=== PATIENT | male | born 1940 | race Caucasian/White ===

== ENCOUNTER 2024-09-08 08:43 | Outpatient (RCR) | payer MEDICARE, OTHER, SELFPAY ==
[2024-09-08 12:02] LABS: PSA Diagnostic* 0.60 ng/mL (0.10-4.00)
--- NOTE | 2024-09-17 15:25 | ONC.NURNOTE ---
Addendum entered by Alexa White RN 09/19/24 16:20: Pt called noting his pain was better yesterday with just Tylenol and 1 Tramadol, then now today it is worse, especially under arms and with walking. Today he has taken 1 Tylenol and 1 Tramadol and is having increased pain. Recommended pt take Tylenol and Tramadol together to get back on top of pain, then to stay on schedule. Reinforced option to take together every 6 hrs or to alternate Tylenol and Tramadol every 3 hrs in the day time. Pt will try taking together for this evening, then will stay on a schedule tomorrow. Original Note: Pt called with concerns the morphine is making him feel very sick, wondering if there is an alternative pain pill he can try. [employer] Worker discussed with Dr. Banegas, Dr. Banegas recommends pt take the tramadol he already has and to discuss pain management with palliative care. [employer] Worker called pt with this information and he verbalized understanding of plan of care. Pt given phone # for palliative care so he can reach them to get scheduled.
--- NOTE | 2024-10-07 12:14 | ONC.NURNOTE ---
Patient and called today about have [facility] appts the same day as his appt here on 12/24/24. states that she received paperwork from [facility] and it shows that he has an injection appt on 12/24 at 4:15 at [facility] and they would prefer to keep their appt at [facility]. Advised patient and that they would need to call [facility] to update them he is getting his injection here that day and to cancel his [facility] one. states she has called and talked to the microfilm machine operator 3 times and they said they needed to call us. RN advised that our clinic does not have the ability to make changes to [facility] appts but was happy to try and call for them. Patient stated they would call again and call back if they continued to have issues.
--- NOTE | 2024-11-11 11:41 | URNOTE ---
Request received for authorization for Lupron (Leuprolide) ([id number]). Prior authorization is not required as services are based on medical necessity and follow Medicare guidelines.
--- NOTE | 2024-12-18 11:37 | URNOTE ---
Request received for authorization for Lupron (Leuprolide) ([id number]) or Eligard ([id number]). Prior authorization is not required as services are based on medical necessity and follow Medicare guidelines.
--- NOTE | 2024-12-23 10:14 | ONC.NURNOTE ---
Patient's , Bianca called [facility] to cancel his appointments tomorrow. He is hospitalized at [facility]. He was admitted Sunday with Kamila and is now dealing with SOB and hallucinations. Per family, MRI was obtained and potential mets were seen. [facility] to obtain all records prior to seeing patient once he is discharged, family will notify our team when this occurs for follow up rescheduling. He is being followed currently by cardiology in addition to internal medicine. They will ask for oncology followup with potential call to local oncologist. Oncologist notified of above.
--- NOTE | 2025-01-21 14:13 | ONC.NURNOTE ---
Patient's called [facility] to request an appointment with Dr. Banegas again. Nursing asked about verifying that Hospice approved this or patient has been discharged. They denied this, but said that they have insurance. Informed spouse once again that when a patient is enrolled in hospice, care is bundled under this coverage. She was asked to again reach out to their hospice group to find out if this would be covered, and then we will be happy to get the patient into the schedule.
== END 2025-03-07 23:59 | disposition home or self-care (01) ==
LOC: CCIC 08:43
PROVIDERS: PCP Internal Medicine; Referring Provider Internal Medicine; Visit Provider Internal Medicine Hematology & Oncology
DX: C61 Malignant neoplasm of prostate (principal); I48.91 Unspecified atrial fibrillation; Z79.01 Long term (current) use of anticoagulants
CPT/HCPCS: 36415; 84153; 99202; 99205